=== PATIENT | male | born 1945 | race Caucasian/White ===

== ENCOUNTER 2022-07-10 19:45 | Emergency (ER) | payer OTHER ==
[~2022-07-10] VITALS: Ht 177.8 cm; Wt 85.3 kg
== END 2022-07-10 21:02 | disposition home or self-care (01) ==
LOC: ER 19:45
DX: S61.451D Open bite of right hand, subsequent encounter (principal); L03.113 Cellulitis of right upper limb; W55.01XD Bitten by cat, subsequent encounter; Z88.8 Allergy status to other drugs, medicaments and biological substances